=== PATIENT | male | born 1945 | race Caucasian/White ===

== ENCOUNTER 2017-12-09 07:13 | Outpatient (CLI) | payer OTHER | END 2017-12-09 07:22 | disposition home or self-care (01) | LOC: TOM 07:13 | DX: Z85.038 Personal history of other malignant neoplasm of large intestine (principal); Z86.010 Personal history of colon polyps; C18.4 Malignant neoplasm of transverse colon ==

== ENCOUNTER 2018-01-06 13:42 | Outpatient (CLI) | payer OTHER | END 2018-01-06 13:47 | disposition home or self-care (01) | LOC: LAB 13:42 | DX: R94.4 Abnormal results of kidney function studies (principal) ==

== ENCOUNTER 2018-01-07 07:25 | Outpatient (CLI) | payer OTHER | END 2018-01-07 07:32 | disposition home or self-care (01) | LOC: TOM 07:25 | DX: I25.119 Atherosclerotic heart disease of native coronary artery with unspecified angina pectoris (principal); E11.9 Type 2 diabetes mellitus without complications; E78.2 Mixed hyperlipidemia; E06.3 Autoimmune thyroiditis; I73.89 Other specified peripheral vascular diseases; I70.213 Atherosclerosis of native arteries of extremities with intermittent claudication, bilateral legs; I71.9 Aortic aneurysm of unspecified site, without rupture | CPT/HCPCS: 74177; Q9965 ==

== ENCOUNTER 2018-08-19 13:22 | Outpatient (CLI) | payer OTHER | END 2018-08-19 13:37 | disposition home or self-care (01) | LOC: MRI 13:22 | DX: M25.511 Pain in right shoulder (principal); M75.101 Unspecified rotator cuff tear or rupture of right shoulder, not specified as traumatic | CPT/HCPCS: 73221 ==

== ENCOUNTER 2018-10-26 10:26 | Outpatient (CLI) | payer OTHER | END 2018-10-26 16:05 | disposition home or self-care (01) | LOC: TOM 10:26 | DX: C18.4 Malignant neoplasm of transverse colon (principal); R05 Cough; J44.9 Chronic obstructive pulmonary disease, unspecified ==

== ENCOUNTER 2019-04-20 13:46 | Outpatient (CLI) | payer OTHER | END 2019-04-20 13:52 | disposition home or self-care (01) | LOC: MRI 13:46 | DX: M75.111 Incomplete rotator cuff tear or rupture of right shoulder, not specified as traumatic (principal) | CPT/HCPCS: 73221 ==